=== PATIENT | female | born 1985 | race Two or more races ===

== ENCOUNTER 2018-05-08 18:53 | Emergency (ER) | payer MEDICAID ==
--- NOTE | 2018-05-08 20:07 | EDM.PDOC ---
ED HPI GENERAL MEDICAL PROBLEM - General Chief Complaint: Upper Extremity Injury/Pain Stated Complaint: FELL, LANDED ON RT WRIST Time Seen by Provider: 05/08/18 20:00 Source of Information: Reports: Patient History Limitations: Reports: No Limitations - History of Present Illness INITIAL COMMENTS - FREE TEXT/NARRATIVE: This 33 yo female patient reports to the ED with pain to her right hand and wrist. The patient reports about 30 minutes prior to arrival, she slipped while walking around her car and fell to her right knee and right wrist. The patient reports continued pain and swelling to her right wrist, but her knee feels alright. Onset: Today Duration: Minutes: Location: Reports: Upper Extremity, Right Quality: Reports: Ache, Dull, Throbbing Severity: Moderate Improves with: Reports: Cold Therapy, Rest Worsens with: Reports: Movement Context: Reports: Trauma Associated Symptoms: Reports: No Other Symptoms Treatments KAIAWHINA: Reports: Acetaminophen, NSAIDS Right Wrist Pain Score (Numeric/FACES): 7 - Related Data Allergies Allergy/AdvReac Type Severity Reaction Status Date / Time No Known Allergies Allergy Verified 05/08/18 19:14 Home Meds: Home Meds Sertraline [Zoloft] 150 mg PO DAILY 05/08/18 [History] Past Medical History Psychiatric History: Reports: Depression - Past Surgical History HEENT Surgical History: Reports: Other (See Below) Other HEENT Surgeries/Procedures: Had ear surgery when young to remove cyst. Social & Family History - Tobacco Use Smoking Status *Q: Never Smoker Second Hand Smoke Exposure: Yes - Caffeine Use Caffeine Use: Reports: Soda - Recreational Drug Use Recreational Drug Use: No Review of Systems - Review of Systems Review Of Systems: ROS reveals no pertinent complaints other than HPI. ED EXAM, GENERAL - Physical Exam Exam: See Below Exam Limited By: No Limitations General Appearance: Alert, WD/WN, Moderate Distress Eye Exam: Bilateral Eye: EOMI, Normal Inspection, PERRL Ears: Normal External Exam, Normal Canal, Hearing Grossly Normal, Normal TMs Nose: Normal Inspection, Normal Mucosa, No Blood Throat/Mouth: Normal Inspection, Normal Lips, Normal Teeth, Normal Gums, Normal Oropharynx, Normal Voice, No Airway Compromise Head: Atraumatic, Normocephalic Neck: Normal Inspection, Supple, Non-Tender, Full Range of Motion Respiratory/Chest: No Respiratory Distress, Lungs Clear, Normal Breath Sounds, No Accessory Muscle Use, Chest Non-Tender Cardiovascular: Normal Peripheral Pulses, Regular Rate, Rhythm, No Edema, No Gallop, No JVD, No Murmur, No Rub GI/Abdominal: Normal Bowel Sounds, Soft, Non-Tender, No Organomegaly, No Distention, No Abnormal Bruit, No Mass (Female) Exam: Deferred Rectal (Female) Exam: Deferred Back Exam: Normal Inspection, Full Range of Motion, NT Extremities: Arm Pain (right wrist and hand), Leg Pain (minor to right knee) Neurological: Alert, Oriented, CN II-XII Intact, Normal Cognition, Normal Gait, Normal Reflexes, No Motor/Sensory Deficits Psychiatric: Normal Affect, Normal Mood Skin Exam: Warm, Dry, Intact, Normal Color, No Rash Lymphatic: No Adenopathy Course - Vital Signs Last Recorded V/S: Last Vital Signs Temp 36.7 C 05/08/18 19:12 Pulse 90 05/08/18 19:12 Resp 14 05/08/18 19:12 BP 144/103 H 05/08/18 19:12 Pulse Ox 96 05/08/18 19:12 - Orders/Labs/Meds Orders: Active Orders 24 hr Category Date Time Status Ketorolac [Toradol] Med 05/08/18 20:49 Once 30 mg IM ONETIME ONE - Re-Assessments/Exams Free Text/Narrative Re-Assessment/Exam: 05/08/18 20:50 EXAM: XR Right Wrist Complete, 3 or more Views EXAM DATE/TIME: 05/08/2018 8:15 PM CLINICAL HISTORY: 33 years old, female; Signs and symptoms; Other: Fall/pain TECHNIQUE: XR Right wrist 3 or more views. COMPARISON: No relevant prior studies available. FINDINGS: Bones/joints: There is old healed distal fifth metacarpal fracture. No acute fracture. Soft tissues: Normal. IMPRESSION: No acute fracture Thank you for allowing us to participate in the care of your patient. Dictated and Authenticated by: Brody Lindsay MD 05/08/2018 8:44 PM Central Time ([place] & [place]) Departure - Departure Time of Disposition: 20:51 Disposition: Home, Self-Care 01 Condition: Fair Clinical Impression: Contusion of right wrist Qualifiers: Encounter type: initial encounter Qualified Code(s): S60.211A - Contusion of right wrist, initial encounter - Discharge Information *PRESCRIPTION DRUG MONITORING PROGRAM REVIEWED*: Not Applicable *COPY OF PRESCRIPTION DRUG MONITORING REPORT IN PATIENT KIET: Not Applicable Instructions: Contusion, [id number] Forms: ED Department Discharge Care Plan Goals: The patient was advised of the examination and x-ray results during the visit. The patient was encouraged to rest, ice and elevate the extremity over the next 48 hours. The patient was given an injection of Toradol while in the ED. The patient may continue to take Tylenol and ibuprofen as directed for temporary symptom relief. If the patient has any additional symptoms or concerns, the patient should either visit her primary care facility or return to the emergency department. - My Orders Last 24 Hours: My Active Orders 05/08/18 20:49 Ketorolac [Toradol] 30 mg IM ONETIME ONE - Assessment/Plan Last 24 Hours: My Active Orders 05/08/18 20:49 Ketorolac [Toradol] 30 mg IM ONETIME ONE
[2018-05-08] MEDS ORDERED: Ketorolac 30 MG/ML SDV IM ONE (20:49)
== END 2018-05-08 21:10 | disposition home or self-care (01) ==
LOC: DL.ED 18:53
DX: S60.211A Contusion of right wrist, initial encounter (principal); F32.9 Major depressive disorder, single episode, unspecified; W01.0XXA Fall on same level from slipping, tripping and stumbling without subsequent striking against object, initial encounter
CPT/HCPCS: 73110; 96372; 99283; J1885

== ENCOUNTER 2018-05-19 11:34 | Emergency (ER) | payer MEDICAID | END 2018-05-19 14:25 | disposition left against medical advice (07) | LOC: DL.ED 11:34 | DX: Z53.21 Procedure and treatment not carried out due to patient leaving prior to being seen by health care provider (principal) | CPT/HCPCS: 81001; 81025 ==

== ENCOUNTER 2020-09-02 21:53 | Emergency (ER) | payer MEDICAID ==
[2020-09-02] MEDS ORDERED: Sodium Chloride 0.9% 1,000 ML IV ONE (22:45)
--- NOTE | 2020-09-02 22:51 | EDM.PDOC ---
"ED HPI GENERAL MEDICAL PROBLEM - General Chief Complaint: Flank Pain Stated Complaint: KIDNEYS HURTING Time Seen by Provider: 09/02/20 22:40 Source of Information: Reports: Patient History Limitations: Reports: No Limitations - History of Present Illness INITIAL COMMENTS - FREE TEXT/NARRATIVE: This 35 yo female patient reports to the ED with left kidney pain that started yesterday. The patient reports her symptoms have gotten worse throughout today. The patient reports she took Tylenol and ibuprofen at about 1700 with no relief. The patient reports she did have kidney stones in the remote past. The patient does not believe that she is . 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 Social & Family History - Caffeine Use Caffeine Use: Reports: Energy Drinks, Soda ED ROS GENERAL - Review of Systems Review Of Systems: Comprehensive ROS is negative, except as noted in HPI. ED EXAM, RENAL/ - Physical Exam Exam: See Below Exam Limited By: No Limitations General Appearance: Alert, WD/WN, Moderate Distress Eye Exam: Bilateral Eye: EOMI, Normal Inspection, PERRL Ears: Normal External Exam, Normal Canal, Hearing Grossly Normal, Normal TMs Nose: Normal Inspection, Normal Mucosa, No Blood Throat/Mouth: Normal Inspection, Normal Lips, Normal Teeth, Normal Gums, Normal Oropharynx, Normal Voice, No Airway Compromise Head: Atraumatic, Normocephalic Neck: Normal Inspection, Supple, Non-Tender, Full Range of Motion Respiratory/Chest: No Respiratory Distress, Lungs Clear, Normal Breath Sounds, No Accessory Muscle Use, Chest Non-Tender Cardiovascular: Normal Peripheral Pulses, Regular Rate, Rhythm, No Edema, No Gallop, No JVD, No Murmur, No Rub GI/Abdominal: Normal Bowel Sounds, No Organomegaly, No Mass, Pelvis Stable, Tender (throughout abdomen) (Female) Exam: Deferred Rectal (Female) Exam: Deferred Back Exam: CVA Tenderness (L) Extremities: Normal Inspection, Normal Range of Motion, Non-Tender, Normal Capillary Refill, No Pedal Edema Neurological: Alert, Oriented, CN II-XII Intact, Normal Cognition, Normal Gait, Normal Reflexes, No Motor/Sensory Deficits Psychiatric: Normal Affect, Normal Mood Skin Exam: Warm, Dry, Intact, Normal Color, No Rash Lymphatic: No Adenopathy Course - Vital Signs Last Recorded V/S: Last Vital Signs Temp 36.1 C 09/02/20 22:12 Pulse 104 H 09/02/20 22:12 Resp 20 09/02/20 22:12 BP 114/72 09/02/20 22:12 Pulse Ox 100 09/02/20 22:12 - Orders/Labs/Meds Orders: Active Orders 24 hr Category Date Time Status Abdomen Pelvis wo Cont [CT] Urgent Exams 09/02/20 22:57 Ordered CULTURE URINE [RM] Stat Lab 09/02/20 22:30 Received Labs: Laboratory Tests 09/02/20 09/02/20 Range/Units 22:30 22:30 Urine Color Yellow (YELLOW) Urine Appearance Slightly cloudy (CLEAR) Urine pH 6.0 (5.0-9.0) Ur Specific [place] >= 1.030 (1.005-1.030) Urine Protein 30 H (NEGATIVE) Urine Glucose (UA) Negative (NEGATIVE) Urine Ketones Negative (NEGATIVE) Urine Occult Blood Moderate H (NEGATIVE) Urine Nitrite Negative (NEGATIVE) Urine Bilirubin Negative (NEGATIVE) Urine Urobilinogen 0.2 (0.2-1.0) mg/dL Ur Leukocyte Esterase Small H (NEGATIVE) Urine RBC 50-75 H /HPF Urine WBC 40-50 H (0-5/HPF) /HPF Ur Epithelial Cells Moderate H (NOT SEEN) /HPF Amorphous Sediment Few (NOT SEEN) /HPF Urine Bacteria Few (0-FEW/HPF) /HPF Urine Mucus Moderate H (NOT SEEN) /LPF Urine Trichomonas Present H (NOT SEEN) /HPF Urine HCG, Qual Negative Meds: Medications Discontinued Medications Generic Name Dose Route Start Last Admin Trade Name Nicole PRN Reason Stop Dose Admin Sodium Chloride 1,000 mls @ 999 mls/hr 09/02/20 22:45 09/02/20 22:53 Normal Saline IV 09/02/20 23:45 999 mls/hr .BOLUS ONE Administration Ketorolac Tromethamine 30 mg 09/02/20 22:58 09/02/20 23:04 Ketorolac 30 Mg/Ml Sdv IVPUSH 09/02/20 22:59 30 mg ONETIME ONE Administration Metronidazole 2,000 mg 09/02/20 23:00 09/02/20 23:34 Metronidazole 250 Mg Tab PO 09/02/20 23:01 2,000 mg ONETIME ONE Administration - Radiology Interpretation Free Text/Narrative:: [facility] Final Radiology Report Call: [phone] assistance Online chat: [email or web address] Name: LIAT COLEY Age: 35Years F Date: 09/02/2020 SSN: -- : [id number] Study: CT ABDOMEN PELVIS WO CONT Requesting Physician: Manuel Garcia Images: [id number] Addl Studies: Provided Clinical History: left flank pain Contrast: Without Contrast Medium: Contrast Amount: Contrast Method: Page 1 of 2 PROCEDURE INFORMATION: Exam: CT Abdomen And Pelvis Without Contrast Exam date and time: 09/02/2020 11:12 PM Age: 35 years old Clinical indication: Abdominal pain; Flank; Left; Additional info: Left flank pain TECHNIQUE: Imaging protocol: Computed tomography of the abdomen and pelvis without contrast. Radiation optimization: All CT scans at this facility use at least one of these dose optimization techniques: automated exposure control; mA and/or kV adjustment per patient size (includes targeted exams where dose is matched to clinical indication); or iterative reconstruction. COMPARISON: No relevant prior studies available. FINDINGS: Lungs: The lung bases are clear. No effusion Liver: Normal. No mass. Gallbladder and bile ducts: No wall thickening, pericholecystic fluid or stones. Pancreas: Normal. No ductal dilation. Spleen: Normal. No splenomegaly. Adrenal glands: Normal. No mass. Kidneys and ureters: Normal. No hydronephrosis. Stomach and bowel: There is diverticulosis. There is a moderate amount of hazy fat stranding involving the omentum. Appendix: No evidence of appendicitis. Intraperitoneal space: There is a small amount of ascites. Vasculature: Unremarkable. No abdominal aortic aneurysm. Lymph nodes: Unremarkable. No enlarged lymph nodes. LIAT COLEY | Final Radiology Report CONFIDENTIALITY STATEMENT This report is intended only for use by the referring physician, and only in accordance with law. If you received this in error, call [phone]. Page 2 of 2 Urinary bladder: Unremarkable as visualized. Reproductive: Unremarkable as visualized. Bones/joints: Unremarkable. No acute fracture. Soft tissues: Unremarkable. IMPRESSION: 1. Small amount of ascites. 2. Nonspecific haziness in the omental fat. Findings are nonspecific and can be seen in a diffuse abdominal infectious or inflammatory process. 3. Diverticulosis is present. Given the amount of ascites present, mild diverticulitis cannot be completely excluded. Thank you for allowing us to participate in the care of your patient. Dictated and Authenticated by: Rohith Hu DO 09/02/2020 11:54 PM Central Time ([place] & [place]) Departure - Departure Time of Disposition: 00:09 Disposition: Home, Self-Care 01 Condition: Fair Clinical Impression: Trichomoniasis, Diverticulosis - Discharge Information *PRESCRIPTION DRUG MONITORING PROGRAM REVIEWED*: Not Applicable *COPY OF PRESCRIPTION DRUG MONITORING REPORT IN PATIENT KIET: Not Applicable Instructions: Diverticulosis, Trichomoniasis Forms: ED Department Discharge Care Plan Goals: The patient was advised of the examination, lab and CT results during the visit. The patient was given an oral dose of Metronidazole (2 grams), an oral dose of Augmentin (875/125) and an IV dose of Dilaudid. The patient was discharged with a script for Augmentin (875/125) #20 to take 1 by mouth 2 times per day for 10 days. If the patient has any additional symptoms or concerns, the patient should either return to the emergency department or visit her primary care facility. Sepsis Event Note (ED) - Evaluation Sepsis Screening Result: No Definite Risk - Focused Exam Vital Signs: Vital Signs Temp Pulse Resp BP Pulse Ox 09/02/20 22:12 36.1 C 104 H 20 114/72 100 - My Orders Last 24 Hours: My Active Orders 09/02/20 22:30 CULTURE URINE [RM] Stat 09/02/20 22:57 Abdomen Pelvis wo Cont [CT] Urgent - Assessment/Plan Last 24 Hours: My Active Orders 09/02/20 22:30 CULTURE URINE [RM] Stat 09/02/20 22:57 Abdomen Pelvis wo Cont [CT] Urgent"
[2020-09-02] MEDS ORDERED: Ketorolac 30 MG/ML SDV IVPUSH ONE (22:58)
[2020-09-02] MEDS ORDERED: metroNIDAZOLE 250 MG Tab PO ONE (23:00)
--- NOTE | 2020-09-02 23:54 | CT ---
PROCEDURE INFORMATION: Exam: CT Abdomen And Pelvis Without Contrast Exam date and time: 09/02/2020 11:12 PM Age: 35 years old Clinical indication: Abdominal pain; Flank; Left; Additional info: Left flank pain TECHNIQUE: Imaging protocol: Computed tomography of the abdomen and pelvis without contrast. Radiation optimization: All CT scans at this facility use at least one of these dose optimization techniques: automated exposure control; mA and/or kV adjustment per patient size (includes targeted exams where dose is matched to clinical indication); or iterative reconstruction. COMPARISON: No relevant prior studies available. FINDINGS: Lungs: The lung bases are clear. No effusion Liver: Normal. No mass. Gallbladder and bile ducts: No wall thickening, pericholecystic fluid or stones. Pancreas: Normal. No ductal dilation. Spleen: Normal. No splenomegaly. Adrenal glands: Normal. No mass. Kidneys and ureters: Normal. No hydronephrosis. Stomach and bowel: There is diverticulosis. There is a moderate amount of hazy fat stranding involving the omentum. Appendix: No evidence of appendicitis. Intraperitoneal space: There is a small amount of ascites. Vasculature: Unremarkable. No abdominal aortic aneurysm. Lymph nodes: Unremarkable. No enlarged lymph nodes. Urinary bladder: Unremarkable as visualized. Reproductive: Unremarkable as visualized. Bones/joints: Unremarkable. No acute fracture. Soft tissues: Unremarkable. IMPRESSION: 1. Small amount of ascites. 2. Nonspecific haziness in the omental fat. Findings are nonspecific and can be seen in a diffuse abdominal infectious or inflammatory process. 3. Diverticulosis is present. Given the amount of ascites present, mild diverticulitis cannot be completely excluded.
[2020-09-03] MEDS ORDERED: HYDROmorphone 1 MG/ML Syringe IVPUSH ONE (00:07)
[2020-09-03] MEDS ORDERED: Amoxicillin/Clavulanate K 875-125 MG Tab PO ONE (00:07)
== END 2020-09-03 00:48 | disposition home or self-care (01) ==
LOC: DL.ED 21:53
DX: K57.92 Diverticulitis of intestine, part unspecified, without perforation or abscess without bleeding (principal); A59.9 Trichomoniasis, unspecified
CPT/HCPCS: 74176; 81001; 81025; 87086; 96374; 96375; 99283; 99284-25; A9270-GY; J1170; J1885; J7030